=== PATIENT | male | born 1995 | race Caucasian/White ===

== ENCOUNTER 2016-04-21 00:11 | Emergency (ER) | payer BC ==
[2016-04-21] MEDS ORDERED: FLUORESCEIN NA 1 EA STRIP ONE (00:30)
[2016-04-21 00:35] VITALS: BP 99/61; PULSE 74; TEMP 98.1; BMI 22.7
--- NOTE | 2016-04-21 00:35 | PDOC ---
History of Present Illness - General History Source: Patient Exam Limitations: No Limitations - History of Present Illness Initial Comments: 04/21/16 00:40 The patient is a 21 year old male, with no significant past medical history, who presents to the emergency department complaining of right eye pain s/p getting hit in his eye with a football approximately 1 hour ago. The patient reports associated blurry vision. He states the pain feels as if something were in his eye. The patient denies any LOC. The patient denies any fever, chills, cough, headache, or dizziness. Allergies: None reported. Past Surgical History: None reported Social History: Non-smoker. Denies alcohol or drug use. PCP: Dr. Hanna Gould <Yesy Mendoza - Last Filed: 04/21/16 00:39> <Jessi Peter - Last Filed: 04/21/16 01:05> - General Stated Complaint: EYE INJURY Time Seen by Provider: 04/21/16 00:26 Past History <Yesy Mendoza - Last Filed: 04/21/16 00:39> - Immunization History Immunization Up to Date: Yes - Psycho/Social/Smoking Cessation Hx Suicidal Ideation: No Smoking Status: No Smoking History: Never smoked Number of Cigarettes Smoked Daily: 0 Hx Alcohol Use: No Drug/Substance Use Hx: No Substance Use Type: None <Jessi Peter - Last Filed: 04/21/16 01:05> - Past Medical History Allergies/Adverse Reactions: Allergies Allergy/AdvReac Type Severity Reaction Status Date / Time No Known Allergies Allergy Verified 04/21/16 00:35 Home Medications: Ambulatory Orders No Home Medications 0 dose .ROUTE UTDICT 12/10/11 Erythromycin 0.5% Eye Ointment [Erythromycin 0.5% Eye Ointment -] 1 applic OD TID #1 tube 04/21/16 Review of Systems - Review of Systems Able to Perform ROS?: Yes Comments:: 04/21/16 00:40 GENERAL/CONSTITUTIONAL: No fever or chills. No weakness. HEAD, EYES, EARS, NOSE AND THROAT: +Change in vision, +right eye pain. No ear pain or discharge. No sore throat. CARDIOVASCULAR: No chest pain or shortness of breath. RESPIRATORY: No cough, wheezing, or hemoptysis. GASTROINTESTINAL: No nausea, vomiting, diarrhea or constipation. GENITOURINARY: No dysuria, frequency, or change in urination. MUSCULOSKELETAL: No joint or muscle swelling or pain. No neck or back pain. SKIN: No rash NEUROLOGIC: No headache, vertigo, loss of consciousness, or change in strength/ sensation. ENDOCRINE: No increased thirst. No abnormal weight change. HEMATOLOGIC/LYMPHATIC: No anemia, easy bleeding, or history of blood clots. ALLERGIC/IMMUNOLOGIC: No hives or skin allergy. <Yesy Mendoza - Last Filed: 04/21/16 00:39> *Physical Exam - Vital Signs Last Vital Signs Temp Pulse Resp BP Pulse Ox 98.1 F 74 19 99/61 99 04/21/16 00:29 04/21/16 00:29 04/21/16 00:29 04/21/16 00:29 04/21/16 00:29 - Physical Exam Comments: 04/21/16 00:40 GENERAL: Awake, alert, and fully oriented, in no acute distress HEAD: No signs of trauma EYES: Triangular shaped 2x2 mm corneal abrasion at 12 oclock. PERRLA, EOMI ENT: Auricles normal inspection, hearing grossly normal, nares patent, oropharynx clear without exudates. Moist mucosa NECK: Normal ROM, supple, no lymphadenopathy, JVD, or masses LUNGS: Breath sounds equal, clear to auscultation bilaterally. No wheezes, and no crackles HEART: Regular rate and rhythm, normal S1 and S2, no murmurs, rubs or gallops ABDOMEN: Soft, nontender, normoactive bowel sounds. No guarding, no rebound. No masses EXTREMITIES: Normal range of motion, no edema. No clubbing or cyanosis. No cords, erythema, or tenderness NEUROLOGICAL: Cranial nerves II through XII grossly intact. Normal speech, normal gait SKIN: Warm, Dry, normal turgor, no rashes or lesions noted. <Yesy Mendoza - Last Filed: 04/21/16 00:39> Medical Decision Making - Medical Decision Making 04/21/16 01:03 Pt was struck in the eye with a football thrown by his younger brother. Now feels like something is in the right eye. He has a corneal abrasion. . Minimally blurry vision in the right eye. No redness and PERRLA. Pt will be treated with NSAID and erythromycin ophtho ointment. Pt will follow with his PMD. <Jessi Peter - Last Filed: 04/21/16 01:05> *DC/Admit/Observation/Transfer - Attestations Scribe Attestion: 04/21/16 00:41 Documentation prepared by Yesy Mendoza, acting as hospital medical biller for Jessi Peter MD. <Yesy Mendoza - Last Filed: 04/21/16 00:39> - Discharge Dispostion Admit: No <Jessi Peter - Last Filed: 04/21/16 01:05> Diagnosis at time of Disposition: Corneal abrasion - Discharge Dispostion Disposition: HOME Condition at time of disposition: Stable - Prescriptions Prescriptions: Erythromycin 0.5% Eye Ointment [Erythromycin 0.5% Eye Ointment -] 1 applic OD TID #1 tube - Referrals Referrals: Hanna Gould MD [Primary Care Provider] - - Patient Instructions Printed Discharge Instructions: DI for Corneal Abrasion
[2016-04-21] MEDS ORDERED: ERYTHROMYCIN 0.5% OPHTHALMIC OINTMENT 3.5 GM TUBE OD ONE (00:36)
[2016-04-21] MEDS ORDERED: IBUPROFEN 600 MG TABLET (FP) PO ONE ×2 (00:36→00:37)
[2016-04-21] MEDS ORDERED: ERYTHROMYCIN 0.5% OPHTHALMIC OINTMENT 3.5 GM TUBE ONE (00:37)
== END 2016-04-21 01:03 | disposition home or self-care (01) ==
LOC: JER 00:11
DX: S05.01XA Injury of conjunctiva and corneal abrasion without foreign body, right eye, initial encounter (principal); W21.01XA Struck by football, initial encounter; Y93.89 Activity, other specified; Y92.89 Other specified places as the place of occurrence of the external cause; Y99.8 Other external cause status
CPT/HCPCS: 99282-25